=== PATIENT | male | born 1935 | race Caucasian/White ===

== ENCOUNTER 2017-08-01 11:47 | Emergency (ER) | payer MEDICARE ==
[~2017-08-01 11:47] MED LIST: ASPI81TA82 PO; ATOR40TA49 PO; ECASA PO; FISH1000 PO; MULTCAP13 PO; PLAV75TA PO
[2017-08-01 11:50] VITALS: BP 103/75; PULSE 82; RESP 20; TEMP 98; O2SAT 91
[2017-08-01] MEDS ORDERED: SODIUM CHLORIDE 0.9% FLUSH 10 ML FLUSH IVF PRN (12:15)
--- NOTE | 2017-08-01 12:26 | PD ---
HPI Chief Complaint: General Weakness Time Seen by Provider: 11:56 Travel History International Travel<30 days: No Contact w/Intl Traveler<30days: No Traveled to known affect area: No History of Present Illness HPI patient is an 82-year-old male presents emergency Department with significant failure to thrive. Patient apparently had a stroke approximately 2 years ago and has not been doing well at home since. He had to be forced and her rehabilitation center and ultimately returned home. He is coming by his neighbor who called 911 today after discussing with the family who live out of state. The family is unwilling to take care of him either. He is watched his neighbor waste away over the past few years, he states that he has not had anything to eat or drink in about 2 days now and was concerned for his safety so called 911. The patient only complains of a cough and sore throat otherwise she states that he is here because "I had a stroke". No fevers no nausea no vomiting no diarrhea. PFSH Past Medical History Cardiovascular Problems: Yes (CARDIOMYOPATHY) High Cholesterol: Yes Cerebrovascular Accident: Yes Diminished Hearing: Yes Gastrointestinal Disorders: Yes (DIVERTICULOSIS ) Hypertension: Yes Medical other: Yes (SUBACUTE SUBCLAVIAN VEIN THROMBOSIS) Neurologic: Yes (CVA (RESULTING HEMIPARESIS), BASAL GANGLIA INFARCTION) Tetanus Vaccination: Unknown Past Surgical History Body Medical Devices: STENTS Cardiac Surgery: Yes (PHARMOCOLOGIC STRESS TEST) Oral Surgery: Yes (TONSILLECTOMY WITH ADENOIDECTOMY) Thoracic Surgery: Yes (THORACOTOMY) Other Surgery: Yes (EGD & COLONOSCOPY, STENT PLACEMENT) Social History Alcohol Use: No Tobacco Use: No Substance Use: No Allergies-Medications (Allergen,Severity, Reaction): Coded Allergies: No Known Allergies (Verified Adverse Reaction, Unknown, 08/01/17) Reported Meds & Prescriptions Reported Meds & Active Scripts Active No Active Prescriptions or Reported Medications Review of Systems Except as stated in HPI: all other systems reviewed are Neg Physical Exam Narrative GENERAL: Well-developed emaciated skin and bones extremely malnourished. SKIN: Focused skin assessment warm/dry. HEAD: Atraumatic. Normocephalic. EYES: Pupils equal and round. No scleral icterus. No injection or drainage. ENT: No nasal bleeding or discharge. Mucous membranes pink and moist. Exhibiting a wet cough, TMs clear bilaterally, oropharynx clear. NECK: Trachea midline. No JVD. CARDIOVASCULAR: Regular rate and rhythm. No murmur appreciated. RESPIRATORY: No accessory muscle use. Clear to auscultation. Breath sounds equal bilaterally. Difficult auscultation secondary to upper airway sounds. GASTROINTESTINAL: Abdomen soft, non-tender, nondistended. Hepatic and splenic margins not palpable. MUSCULOSKELETAL: No obvious deformities. No clubbing. No cyanosis. No edema. NEUROLOGICAL: Awake and alert. No obvious cranial nerve deficits. Motor grossly within normal limits. Normal speech. PSYCHIATRIC: Appropriate mood and affect; insight and judgment normal. Data Data Last Documented VS Vital Signs Date Time Temp Pulse Resp B/P (MAP) Pulse Ox O2 Delivery O2 Flow Rate FiO2 08/01/17 15:47 98 16 156/78 (104) 97 Nasal Cannula 2.00 08/01/17 11:50 98.0 Orders Orders Electrocardiogram (08/01/17 12:11) Complete Blood Count With Diff (08/01/17 12:11) Comprehensive Metabolic Panel (08/01/17 12:11) Magnesium (Mg) (08/01/17 12:11) Prothrombin Time / Inr (Pt) (08/01/17 12:11) Act Partial Throm Time (Ptt) (08/01/17 12:11) Chest, Single Ap (08/01/17 12:11) Ecg Monitoring (08/01/17 12:11) Iv Access Insert/Monitor (08/01/17 12:11) Oximetry (08/01/17 12:11) Oxygen Administration (08/01/17 12:11) Sodium Chloride 0.9% Flush (Ns Flush) (08/01/17 12:15) Urinalysis - C+S If Indicated (08/01/17 12:11) Creatine Kinase (Cpk) (08/01/17 12:27) Sodium Chlorid 0.9% 500 Ml Inj (Ns 500 M (08/01/17 14:30) Ed Discharge Order (08/01/17 16:23) Labs Laboratory Tests Test 08/01/17 12:57 08/01/17 13:55 White Blood Count 6.9 TH/MM3 Red Blood Count 4.30 MIL/MM3 Hemoglobin 12.6 GM/DL Hematocrit 38.1 % Mean Corpuscular Volume 88.7 FL Mean Corpuscular Hemoglobin 29.3 PG Mean Corpuscular Hemoglobin Concent 33.0 % Red Cell Distribution Width 13.6 % Platelet Count 379 TH/MM3 Mean Platelet Volume 8.1 FL Neutrophils (%) (Auto) 84.5 % Lymphocytes (%) (Auto) 9.9 % Monocytes (%) (Auto) 4.9 % Eosinophils (%) (Auto) 0.3 % Basophils (%) (Auto) 0.4 % Neutrophils # (Auto) 5.9 TH/MM3 Lymphocytes # (Auto) 0.7 TH/MM3 Monocytes # (Auto) 0.3 TH/MM3 Eosinophils # (Auto) 0.0 TH/MM3 Basophils # (Auto) 0.0 TH/MM3 CBC Comment DIFF FINAL Differential Comment Prothrombin Time 12.6 SEC Prothromb Time International Ratio 1.2 RATIO Activated Partial Thromboplast Time 22.3 SEC Blood Urea Nitrogen 43 MG/DL Creatinine 1.30 MG/DL Random Glucose 116 MG/DL Total Protein 6.8 GM/DL Albumin 2.5 GM/DL Calcium Level 9.5 MG/DL Magnesium Level 2.6 MG/DL Alkaline Phosphatase 164 U/L Aspartate Amino Transf (AST/SGOT) 45 U/L Alanine Aminotransferase (ALT/SGPT) 30 U/L Total Bilirubin 0.6 MG/DL Sodium Level 144 MEQ/L Potassium Level 4.3 MEQ/L Chloride Level 108 MEQ/L Carbon Dioxide Level 27.1 MEQ/L Anion Gap 9 MEQ/L Estimat Glomerular Filtration Rate 53 ML/MIN Total Creatine Kinase 79 U/L Urine Collection Type CLEAN CATCH Urine Color YELLOW Urine Turbidity CLEAR Urine pH 5.5 Urine Specific [place] 1.020 Urine Protein NEG mg/dL Urine Glucose (UA) NEG mg/dL Urine Ketones TRACE mg/dL Urine Occult Blood NEG Urine Nitrite NEG Urine Bilirubin NEG Urine Leukocyte Esterase NEG Urine RBC 0-3 /hpf Urine Squamous Epithelial Cells 0-5 /hpf Microscopic Urinalysis Comment CULT NOT INDICATED Urine Collection Time 13:55 MDM Medical Decision Making Medical Screen Exam Complete: Yes Emergency Medical Condition: Yes Differential Diagnosis Failure to thrive, lecture led abnormality, dehydration, pneumonia. Narrative Course Patient roomed in emergency department, appears emaciated and certainly is not doing well at home at all, initial workup only positive for a faint right lower lobe atelectasis versus infiltrate. Labs are reassuring and the patient's baseline. Mildly dehydrated given 500 cc of fluid, no other complaints or warrants emergent workup. The patient was discussed with Dr. Flaco Mcdonald who is also the patient's primary care provider and on-call for [facility] , he agrees the patient should do well at her nursing facility or rehabilitation facility. He took some convincing with the patient ultimately agreeable for rehabilitation facility, will be prescribed azithromycin for a possible community-acquired pneumonia though I doubt it. He has not had any symptoms of pneumonia is only a small amount of atelectasis on chest x-ray. No family available for counseling, and think his neighbor for taking care of him up to this point. He is stable for discharge. Diagnosis Primary Impression: Pneumonia Additional Impression: FTT (failure to thrive) in adult Med/Other Pt SpecificInfo: Prescription(s) given Scripts Azithromycin (Azithromycin) 250 Mg Tab 250 MG PO DIRECTED for Infection, #6 TAB 0 Refills Take 2 tabs (500 mg) on day 1 then 1 tab daily x 4 days. Prov: Daniel Avalos MD 08/01/17 Disposition: 03 DISCHARGE TO SNF Condition: Stable Daniel Avalos MD Aug 01, 2017 12:26
[2017-08-01 12:30] VITALS: O2SAT 97
--- NOTE | 2017-08-01 12:40 | RADRPT ---
EXAM DATE/TIME: 08/01/2017 12:25 [facility] COMPARISON: CHEST SINGLE AP, December 05, 2014, 10:25. INDICATIONS : Short of breath, coughing, weakness MEDICAL HISTORY : Stroke. SURGICAL HISTORY : none given ENCOUNTER: Initial ACUITY: 1 day PAIN SCORE: 0/10 LOCATION: Bilateral chest FINDINGS: Single AP view of the chest. Patchy opacity in the right lung base. Left lung clear. No evidence of p leural effusion or pneumothorax. Cardiomediastinal silhouette within normal limits. CONCLUSION: Patchy right lung base atelectasis versus mild consolidation. Abdelrahman Montoya MD on August 01, 2017 at 12:36 Board Certified Radiologist. This report was verified electronically.
[2017-08-01 13:08] LABS: AUTOMATED NEUTROPHIL # 5.9 TH/MM3 (1.8-7.7); BASOPHIL % 0.4 % (0.0-2.0); EOSINOPHIL % 0.3 % (0.0-4.0); HEMATOCRIT 38.1 % (39.0-51.0); HEMOGLOBIN 12.6 GM/DL (13.0-17.0); LYMPH % 9.9 % (9.0-44.0); LYMPHOCYTE # 0.7 TH/MM3 (1.0-4.8); MEAN CELL VOLUME 88.7 FL (80.0-100.0); MEAN CORPUSCULAR HEMOGLOBIN 29.3 PG (27.0-34.0); MEAN PLATELET VOLUME 8.1 FL (7.0-11.0); MONO % 4.9 % (0.0-8.0); MONOCYTE # 0.3 TH/MM3 (0-0.9); NEUT % 84.5 % (16.0-70.0); PLATELET COUNT 379 TH/MM3 (150-450); RED CELL DISTRIBUTION WIDTH 13.6 % (11.6-17.2); WHITE BLOOD COUNT 6.9 TH/MM3 (4.0-11.0)
[2017-08-01 13:10] VITALS: BP 119/63; PULSE 110; RESP 16; O2SAT 95
[2017-08-01 13:20] LABS: CHLORIDE 108 MEQ/L (98-107); SODIUM (NA) 144 MEQ/L (136-145)
[2017-08-01 13:24] LABS: CALCIUM 9.5 MG/DL (8.5-10.1); INTERNATIONAL NORMALIZED RATIO 1.2 RATIO; PROTHROMBIN TIME - PATIENT 12.6 SEC (9.8-11.6)
[2017-08-01 13:25] LABS: ALBUMIN 2.5 GM/DL (3.4-5.0); BICARBONATE 27.1 MEQ/L (21.0-32.0); BLOOD UREA NITROGEN 43 MG/DL (7-18); GLUCOSE,RANDOM 116 MG/DL (74-106); MAGNESIUM 2.6 MG/DL (1.5-2.5)
[2017-08-01 13:28] LABS: ALT (GPT) 30 U/L (12-78); AST (GOT) 45 U/L (15-37); GLOMERULAR FILTRATION RATE 53 ML/MIN (>89)
[2017-08-01 13:29] LABS: TOTAL BILIRUBIN ADULT 0.6 MG/DL (0.2-1.0); TOTAL PROTEIN 6.8 GM/DL (6.4-8.2)
[2017-08-01 13:31] LABS: ALKALINE PHOSPHATASE 164 U/L (45-117)
[2017-08-01 14:04] LABS: BILIRUBIN, URINE NEG (NEG); BLOOD, URINE NEG (NEG); GLUCOSE,URINE NEG (NEG); KETONE, URINE TRACE mg/dL (NEG); NITRITE,URINE NEG (NEG); PH, URINE 5.5 (5.0-8.5); URINE LEUKOCYTE ESTERASE NEG (NEG)
[2017-08-01 14:08] LABS: URINE COLOR YELLOW (YELLW/STRAW)
[2017-08-01 14:09] LABS: RBC, URINE 0-3 /hpf (0-3); SQUAMOUS EPITHELIAL CELL URINE 0-5 /hpf (0-5)
[2017-08-01] MEDS ORDERED: SODIUM CHLORID 0.9% 500 ML INJ 500 ML IV ONE (14:30)
[2017-08-01 14:43] VITALS: BP 126/73; PULSE 87; RESP 20; O2SAT 97
[2017-08-01 15:47] VITALS: BP 156/78; PULSE 98; RESP 16; O2SAT 97
--- NOTE | 2017-08-01 15:58 | EKG ---
Date Performed: 08/01/2017 Time Performed: 12:21:00 PTAGE: 82 years EKG: Sinus rhythm WITH OCCASIONAL SUPRAVENTRICULAR PREMATURE COMPLEXES Compared to previous tracing, the anteroseptal WA and ischemic T wave changes from the old tracing are no longer present BORDERLINE ECG PREVIOUS TRACING : 12/12/2014 14.20 DOCTOR: Owen Kenyon Interpretating Date/Time 08/01/2017 15:56:03
[2017-08-01] MEDS ORDERED: AZIT250T3 PO (16:25)
[2017-08-01] MEDS ORDERED: AZITHROMYCIN 250 MG TAB PO ONE (17:30)
[2017-08-01 17:38] VITALS: BP 167/95; PULSE 106; RESP 16; O2SAT 96
== END 2017-08-01 16:30 ==
LOC: PHED 11:47
DX: J18.9 Pneumonia, unspecified organism (principal); R62.7 Adult failure to thrive; J02.9 Acute pharyngitis, unspecified; E78.00 Pure hypercholesterolemia, unspecified; R94.31 Abnormal electrocardiogram [ECG] [EKG]; I10 Essential (primary) hypertension; Z86.73 Personal history of transient ischemic attack (TIA), and cerebral infarction without residual deficits
CPT/HCPCS: 71045; 80053; 81001; 82550; 83735; 85025; 85610; 85730; 93005; 96360; 99285; J7040